=== PATIENT | male | born 1950 | race Caucasian/White ===

== ENCOUNTER 2017-11-01 03:57 | Day surgery (SDC) | payer BC ==
[2017-11-01] VITALS (7 sets, daily range): BP systolic 99–167; BP diastolic 59–109
[~2017-11-01] VITALS: Ht 185.4 cm; Wt 105.7 kg
[~2017-11-01 03:57] MED LIST: ASPI-715 PO; ATOR10TA24 PO; CHOL10005 PO; DOXA4TAB57 PO; FIN5 PO; IBU600 PO; LOR5 PO
[2017-11-01] MEDS ORDERED: LIDOCAINE MPF 1% 5 ML VIAL ONE (07:00)
[2017-11-01] MEDS ORDERED: PROPOFOL EMUL(*) 10MG/ML 20 ML 60 ML ONE (07:00)
[2017-11-01] MEDS ORDERED: LIDOCAINE/SOD BICARB 8.4% SYR ID ONE (08:15)
[2017-11-01] MEDS ORDERED: NORMOSOL R SOLN(*) 1000 ML BAG 1,000 ML IV PRN (08:15)
--- NOTE | 2017-11-01 08:42 | Short(Outpt) Discharge Summary ---
Discharge Summary Reason for Hosp/Final Diag: (1) Family history of colon cancer requiring screening colonoscopy Hospital Course & Plan: 2 mm polyp at hepatic flexure and 5 mm polyp at 25 cm Departure Discharge to: Home Discharge Instructions Home Meds Reported Medications Cholecalciferol (Vitamin D3) (VITAMIN D3) 1,000 Unit Tablet, 1000 UNIT PO, TAB 04/20/17 Atorvastatin Calcium (LIPITOR) 10 Mg Tablet, 1 TAB PO QDAY, TAB 04/20/17 Diet: Regular Activity: As Tolerated JACINTO POWELL MD Nov 01, 2017 08:42
--- NOTE | 2017-11-01 08:42 | Post Operative Progress Note ---
Post Operative Progress Note Date: Nov 01, 2017 Time: 09:13 Surgeon: sea Anesthesia: dr moe Pre-Op Diagnosis: left lower quadrant pain and personal history of polyps Post-Op Diagnosis: 2 mm polyp hepatic flexure and 5 mm polyp at 25 cm Procedure(s): colonoscopy and polypectomy JACINTO POWELL MD Nov 01, 2017 08:42
--- NOTE | 2017-11-01 18:51 | OPERATIVE REPORT 1 ---
EVENT DATE: November 01, 2017 SURGEON: Darshan Pederson MD ANESTHESIOLOGIST: Sundeep Eaton MD ANESTHESIA: Sedation. PREOPERATIVE DIAGNOSES 1. Left lower quadrant pain. 2. Personal history of polyps. POSTOPERATIVE DIAGNOSES 1. A 2 mm polyp at the hepatic flexure. 2. A 5 mm polyp at 25 cm. PROCEDURE PERFORMED Colonoscopy with polypectomy. DESCRIPTION OF PROCEDURE The patient was placed in the left lateral decubitus position and given intravenous sedation. He had some perianal skin tags. No palpable masses. Flexible colonoscope was inserted and advanced to the cecum. He had an excellent bowel prep. The ileocecal valve and base of the cecum were identified. Scope was slowly withdrawn. No abnormalities were noted in the cecum, right colon. At the hepatic flexure, he had a 2 mm polypoid projection that projected out, and this was removed with the polypectomy snare and retrieved. The transverse colon, descending colon were normal. In the sigmoid colon, he had a sessile 5 mm polypoid projection. This was removed with a couple of passes with the polypectomy snare and cautery. Polypoids were retrieved. The rest of the sigmoid colon was normal. Rectum was normal. Scope was retroflexed. That appeared to be normal. [facility]
== END 2017-11-01 10:51 | disposition home or self-care (01) ==
LOC: OR 03:57
PROVIDERS: ATTEND Surgery
DX: K63.5 Polyp of colon (principal)
CPT/HCPCS: 00811; 45385; 88305; J2001; J2704